=== PATIENT | male | born 1960 | race Caucasian/White ===

== ENCOUNTER 2017-12-04 18:21 | Emergency (ER) | payer OTHER ==
[2017-12-04] MEDS: NICARDipine HCL 30 MG CAPSULE PO (18:48)
== END 2017-12-04 19:40 | disposition home or self-care (01) ==
LOC: E/R 18:21
DX: I10 Essential (primary) hypertension (principal)
CPT/HCPCS: 82962; 99283

== ENCOUNTER 2018-01-21 10:45 | Emergency (ER) | payer OTHER ==
[2018-01-21] MEDS: SOD CHLORIDE 0.9% 500 ML IV (12:18)
[2018-01-21] MEDS: METHYLPREDNISOLONE 125 MG INJ IV (12:18)
[2018-01-21] MEDS: CEFTRIAXONE 1 GM/50 ML (PMX) 50 ML IVPB (12:22)
[2018-01-21] MEDS: ALBUTEROL 0.083% (NEB) 2.5 MG/3 ML AMP HHN (12:45)
[2018-01-21] MEDS: IPRATROPIUM (NEB) 0.5 MG/2.5 ML AMP HHN (12:45)
== END 2018-01-21 14:12 | disposition home or self-care (01) ==
LOC: FTE 10:45
DX: A49.9 Bacterial infection, unspecified (principal); I10 Essential (primary) hypertension; E11.9 Type 2 diabetes mellitus without complications
CPT/HCPCS: 71046; 94664; 96374; 96375; 99284-25

== ENCOUNTER 2018-10-07 12:23 | Emergency (ER) | payer OTHER ==
[2018-10-07] MEDS: FLUORESCEIN STRIP RIGHT EYE (14:17)
[2018-10-07] MEDS: TETRACAINE 0.5% 4 ML OPH RIGHT EYE (14:17)
== END 2018-10-07 14:41 | disposition home or self-care (01) ==
LOC: FTE 12:23
DX: S05.01XA Injury of conjunctiva and corneal abrasion without foreign body, right eye, initial encounter (principal); I10 Essential (primary) hypertension; E11.9 Type 2 diabetes mellitus without complications; X58.XXXA Exposure to other specified factors, initial encounter; Y92.69 Other specified industrial and construction area as the place of occurrence of the external cause
CPT/HCPCS: 99283; Z7502